=== PATIENT | male | born 1980 | race Caucasian/White ===

== ENCOUNTER 2017-04-17 11:01 | Emergency (ER) | payer MEDICAID ==
[~2017-04-17] VITALS: Ht 175.3 cm; Wt 88.5 kg
[2017-04-17 11:07] VITALS: BP_SYST 131
[2017-04-17] MEDS ORDERED: traMADol HCL HCL 50 MG TABLET (ULTRAM) PO ONE (12:00)
[2017-04-17] MEDS ORDERED: ONDANSETRON 4 MG ODT TAB PO ONE (12:00)
[2017-04-17 12:45] VITALS: BP_SYST 132
== END 2017-04-17 12:45 | disposition home or self-care (01) ==
LOC: SED 11:01
DX: S00.03XA Contusion of scalp, initial encounter (principal); S20.212A Contusion of left front wall of thorax, initial encounter; M25.512 Pain in left shoulder; Z98.890 Other specified postprocedural states; W11.XXXA Fall on and from ladder, initial encounter; Y93.89 Activity, other specified; Y92.89 Other specified places as the place of occurrence of the external cause; Y99.8 Other external cause status
CPT/HCPCS: 70450; 73020; 73080; 99284; Q0162

== ENCOUNTER 2019-08-21 17:26 | Emergency (ER) | payer MEDICAID, OTHER ==
[~2019-08-21] VITALS: Ht 175.3 cm; Wt 90.7 kg
[2019-08-21 17:40] VITALS: BP_SYST 123
--- NOTE | 2019-08-21 17:40 | NUR ---
Patient to ER bed 4 to gown for evaluation. Side rails up. Report given to JENNIFER Garza.
--- NOTE | 2019-08-21 17:47 | NUR ---
Patient is awake, alert, and oriented x4. Patient is complaining of right lower jaw pain 10/10, nausea, and shakes x 3 days. Patient saw a doctor and started amoxicilin yesterday. Molar on right lower jam looks to be rotted.
--- NOTE | 2019-08-21 17:50 | NUR ---
ER Dr. Fernando at bedside examining patient.
[2019-08-21] MEDS ORDERED: KETOROLAC TROMETHAMINE 60 MG/2 ML VIAL IM ONE (18:00)
--- NOTE | 2019-08-21 18:30 | NUR ---
Patient given written and verbal discharge instructions and verbalizes understanding. ER MD discussed with patient the results and treatment provided. Patient in stable condition. ID arm band removed. Rx of naprosyn, penicillin V given. Patient educated on pain management and to follow up with PMD. Pain Scale 5/10, MD is aware. Opportunity for questions provided and answered. Medication side effect fact sheet provided.
[2019-08-21 18:34] VITALS: BP_SYST 118
== END 2019-08-21 18:30 | disposition home or self-care (01) ==
LOC: SED 17:26
DX: K08.89 Other specified disorders of teeth and supporting structures (principal)
CPT/HCPCS: 96372; 99283; J1885